=== PATIENT | female | born 1940 | race Caucasian/White ===

== ENCOUNTER 2022-12-07 15:59 | Outpatient (RCR) | payer MEDICARE, SELFPAY | END 2023-04-06 23:59 | disposition home or self-care (01) | PROVIDERS: PCP Psychiatry & Neurology Neurology; Visit Provider Psychiatry & Neurology Neurology | DX: R25.1 Tremor, unspecified (principal); R26.89 Other abnormalities of gait and mobility; M41.80 Other forms of scoliosis, site unspecified; Z51.89 Encounter for other specified aftercare | CPT/HCPCS: 97110; 97162 ==